=== PATIENT | male | born 1965 | race Caucasian/White ===

== ENCOUNTER 2019-08-23 07:30 | Day surgery (SDC) | payer OTHER ==
[~2019-08-23] VITALS: Ht 182.9 cm; Wt 88.5 kg
[~2019-08-23 07:30] MED LIST: BUPRENORPHINE HC8 MG SL; CYCLOBENZAPRINE10 MG PO
[2019-08-23] MEDS ORDERED: ELDERBERRY JUICE (08:00)
[2019-08-23 08:02] VITALS: BP 149/91; Ht 182.9 cm; Wt 88.5 kg
[2019-08-23] MEDS ORDERED: HYDROCODON-ACE1 EA10 PO (11:16)
--- NOTE | 2019-08-23 15:46 | NUR ---
1245 IV DC'D. CATHETER TIP INTACT. NO BLEEDING AT SITE. BANDAID APPLIED.
--- NOTE | 2019-08-27 11:32 | OP ---
PATIENT NAME: DANIS SYED MEDICAL RECORD: [id number] :61 LOCATION:D.OPS ADMISSION DATE: SURGEON: CLARENCE RIVERA MD DATE OF OPERATION: 08/23/2019 PREOPERATIVE DIAGNOSIS: Medial meniscus tear of the right knee. POSTOPERATIVE DIAGNOSIS: Medial meniscus tear of the right knee. PROCEDURE: Arthroscopic partial medial meniscectomy. SURGEON: Clarence Rivera MD ANESTHESIA: General. INTRAOPERATIVE COMPLICATIONS: None. 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 OPERATIVE SUMMARY IN DETAIL: After obtaining the appropriate preoperative orthopedic surgery consent as well as anesthetic consultation, evaluation and clearance, the patient was brought to the operating room and placed on the operating table in a supine position. After adequate general laryngeal mask airway was administered, tourniquet was placed on the proximal right lower extremity. Right lower extremity was then prepped and draped in routine sterile fashion. At this point, the appropriate timeout was taken and agreed upon by all given the patient's unique identifiers. The leg was elevated and exsanguinated, tourniquet was inflated to 350 mmHg. Routine inferolateral portal was created followed by superior medial and inferomedial portal. Diagnostic arthroscopy showed the patient to have the complex tear of the posterior horn of the medial meniscus. Lateral meniscus was pristine as was the lateral compartment. There was almost no chondromalacia of the medial compartment. Combination 3.5 full radius resector along with the meniscotome was utilized to debride the meniscus back to stable meniscal elements with good retention of elements. Arthroscopy did show the patient to have substantial amount of grade III chondromalacia. There was no unstable chondral elements, however. Having completed this, arthroscopy portals were closed in routine interrupted fashion using 4-0 Prolene, then it was blocked preoperatively; however, he was given a Marcaine and cortisone injection of 15 cc of 0.25% Marcaine with epinephrine and 80 mg of Depo-Medrol. Sterile dressings were applied. Tourniquet was deflated. The patient was awakened and taken to the recovery room in stable condition. All final needle and sponge counts were correct. TRANSINT:[id number] Voice Confirmation ID: [id number] DOCUMENT ID: [id number] OPERATIVE REPORT [id number] DANIS SYED MD, CLARENCE BRUNO at 1132 CC: [id number] DICTATION DATE: 08/23/19 1332 [employer]PLI[employer] MANAGER: 08/23/19 1621 [facility] [place] 08/23/19 [place] [id number]
== END 2019-08-23 13:10 | disposition home or self-care (01) ==
LOC: D.OPS 07:30 → D.PAN 11:00 → D.OPS 13:10
PROVIDERS: ATTEND Orthopaedic Surgery
DX: S83.231A Complex tear of medial meniscus, current injury, right knee, initial encounter (principal); X58.XXXA Exposure to other specified factors, initial encounter; M25.561 Pain in right knee

== ENCOUNTER 2019-08-24 09:48 | Emergency (ER) | payer OTHER ==
[~2019-08-24] VITALS: Ht 182.9 cm; Wt 88.6 kg
[~2019-08-24 09:48] MED LIST changes: +ELDERBERRY JUICE; +HYDROCODON-ACE1 EA10 PO
[2019-08-24 09:54] VITALS: Ht 182.9 cm; Wt 88.6 kg
[2019-08-24 10:30] VITALS: BP 152/93
== END 2019-08-24 10:30 | disposition home or self-care (01) ==
LOC: D.ER 09:48
DX: L76.22 Postprocedural hemorrhage of skin and subcutaneous tissue following other procedure (principal); L76.32 Postprocedural hematoma of skin and subcutaneous tissue following other procedure